=== PATIENT | male | born 1985 | race American Indian/Alaskan Native ===

== ENCOUNTER 2022-01-25 01:02 | Emergency (ER) | payer MEDICAID ==
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
[2022-01-25 02:59] LABS: Basophils % (Auto) 0.3 % (0.0-1.8); Eosinophils % (Auto) 0.2 % (0.0-4.3); Hematocrit 38.6 % (35.5-45.6); Lymphocytes # (Auto) 1.2 K/mm3 (1.2-5.4); Lymphocytes % (Auto) 13.8 % (13.4-35.0); Mean Corpuscular HGB Conc 34 % (32-34); Mean Corpuscular Volume 100 fl (84-94); Monocytes # (Auto) 0.5 K/mm3 (0.0-0.8); Monocytes % (Auto) 5.8 % (0.0-7.3); Platelet Count 215 K/mm3 (140-440); Red Blood Count 3.87 M/mm3 (3.65-5.03); Red Cell Distribution Width 12.5 % (13.2-15.2)
[2022-01-25 03:18] LABS: Creatine Kinase MB 1.8 ng/mL (0.0-4.0)
[2022-01-25 03:22] LABS: BUN/Creatinine Ratio 13; Blood Urea Nitrogen 17 mg/dL (9-20); Calcium 8.7 mg/dL (8.4-10.2); Hemolysis Index 10
[2022-01-25 06:14] LABS: Amphetamine Screen,Urine PRESUMPTIVE NEGATIVE; Benzodiazepines Screen,Urine PRESUMPTIVE NEGATIVE; Cannabinoid Screen,Urine PRESUMPTIVE POSITIVE; Cocaine Screen,Urine PRESUMPTIVE NEGATIVE; Methadone Screen,Urine PRESUMPTIVE NEGATIVE; Opiate Screen,Urine PRESUMPTIVE NEGATIVE
[2022-01-25 07:25] VITALS: BP 105/66
--- NOTE | 2022-01-25 08:45 | Event Note ---
Repeat blood alcohol level 0.07. Patient is clinically sober. Discharged home. He is now appropriate alert and oriented x4 steady normal gait.
--- NOTE | 2022-01-26 11:22 | Electrocardiograph Report ---
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
== END 2022-01-25 09:23 | disposition home or self-care (01) ==
LOC: ED 01:02
DX: F10.129 Alcohol abuse with intoxication, unspecified (principal); I31.9 Disease of pericardium, unspecified; I10 Essential (primary) hypertension; Z98.890 Other specified postprocedural states; F17.200 Nicotine dependence, unspecified, uncomplicated; Z79.899 Other long term (current) drug therapy
CPT/HCPCS: 36415; 80048; 80307; 80320; 82550; 82553; 84484; 85025; 85379; 93005; 99284; G0480

== ENCOUNTER 2022-04-13 08:19 | Emergency (ER) | payer MEDICAID ==
[2022-04-13] MEDS ORDERED: SODIUM CHLORIDE 0.9% 1000 ML 1,000 ML IV ONE (09:47)
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
--- NOTE | 2022-04-13 11:05 | Cat Scan Report ---
CT ABDOMEN AND PELVIS WITHOUT CONTRAST INDICATION / CLINICAL INFORMATION: Abdominal Pain. TECHNIQUE: All CT scans at this location are performed using CT dose reduction for ALARA by means of automated exposure control. COMPARISON: None available. FINDINGS: ABDOMEN: There is marked right pelvocaliectasis and proximal ureterectasis. There is moderately sever e perinephric soft tissue stranding on the right. There are at least a couple of adjacent calculi in the occipital right ureter. The combined dimension is approximately 11 mm with the largest calculus m easuring 8.5 mm. The calculi are located at the L3-4 level. There are a few additional bilateral nono bstructive renal calculi, larger and more numerous on the right than the left. There are multiple calcified granulomata in the spleen. The liver, gallbladder, bile ducts, pancreas, adrenal glands and bowel are normal. No adenopathy is present. There are mild atherosclerotic calcif ications involving the abdominal aorta. There is old calcified granulomatous disease in the right low er lobe. The lung bases are otherwise clear. PELVIS: The distal ureters, urinary bladder, prostate gland and seminal vesicles are normal area a no rmal appendix is present and there is no evidence of diverticulitis. No abnormal mass or fluid collec tion is seen. I do not identify a hernia. No acute osseous abnormality is present. IMPRESSION: 1. At least a couple of adjacent calculi in the right ureter at the L3-4 level are causing severe rig ht-sided hydronephrosis. The largest calculus measures approximately 8.5 mm and the combined dimensio n of the calculi is approximately 11 mm. 2. Bilateral nonobstructive nephrolithiasis, greater on the right. Signer Name: Jasmeet Gomez MD Signed: 04/13/2022 11:01 AM Workstation Name: [id number]
[2022-04-13 11:09] LABS: Alanine Aminotransferase 26 units/L (7-56); Albumin 4.2 g/dL (3.9-5); BUN/Creatinine Ratio 10; Blood Urea Nitrogen 13 mg/dL (9-20); Calcium 9.1 mg/dL (8.4-10.2); Hemolysis Index 4
[2022-04-13 11:13] LABS: Bilirubin,Direct < 0.2 mg/dL (0-0.2)
[2022-04-13 13:11] LABS: Mucus,Urine 3+ /HPF
[2022-04-13 13:26] LABS: Bilirubin,Urine Negative (Negative); Color,Urine Straw (Yellow); RBC,Urine > 182.0 /HPF (0.0-6.0); WBC,Urine > 182.0 /HPF (0.0-6.0)
[2022-04-13 13:29] LABS: Blood,Urine Large (Negative); Urobilinogen,Urine < 2.0 mg/dL (<2.0)
[2022-04-13] MEDS ORDERED: MORPHINE 4 MG/1 ML INJ IV ONE (13:41)
[2022-04-13] MEDS ORDERED: KETOROLAC 30 MG/1 ML INJ IV ONE (13:41)
[2022-04-13] MEDS ORDERED: ONDANSETRON 4 MG/2 ML INJ IV ONE (13:41)
[2022-04-13 15:08] VITALS: BP 136/82
== END 2022-04-13 14:00 | disposition home or self-care (01) ==
LOC: ED 08:19
DX: N23 Unspecified renal colic (principal); N20.0 Calculus of kidney; I10 Essential (primary) hypertension; F17.200 Nicotine dependence, unspecified, uncomplicated; F10.20 Alcohol dependence, uncomplicated; F12.90 Cannabis use, unspecified, uncomplicated
CPT/HCPCS: 36415; 74176; 80048; 80076; 81001; 83690; 96360; 99284; J7030